=== PATIENT | male | born 2000 | race Caucasian/White ===

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

== ENCOUNTER 2021-03-03 22:17 | Emergency (ER) | payer OTHER ==
[~2021-03-03] VITALS: Ht 180.3 cm; Wt 104.3 kg
[~2021-03-03 22:17] MED LIST: IBUP-1955 PO
--- NOTE | 2021-03-03 22:33 | NUR ---
Patient walked into ER c/o lower back pain. Patient states he works for a [employer] and while at work today, he was painting the base of a wall and stood up and had unbearable pain on his lower back.
--- NOTE | 2021-03-03 22:34 | NUR ---
Dr. Grissom on bedside for MSE.
[2021-03-03] MEDS ORDERED: ONDANSETRON ODT 4 MG TAB.RAPDIS SL ONE (22:45)
[2021-03-03] MEDS ORDERED: CYCLOBENZAPRINE HCL 10 MG TABLET PO ONE (22:45)
[2021-03-03] MEDS ORDERED: HYDROCODONE/APAP 10-325 MG TABLET PO ONE (22:45)
[2021-03-03] MEDS ORDERED: ONDANSETRON ODT 4 MG TAB.RAPDIS ONE (22:53)
[2021-03-03] MEDS ORDERED: CYCLOBENZAPRINE HCL 10 MG TABLET ONE (22:53)
[2021-03-03] MEDS ORDERED: HYDROCODONE/APAP 10-325 MG TABLET ONE (22:54)
[2021-03-03 23:29] LABS: *BILIRUBIN,URIN NEGATIVE (NEGATIVE); *BLOOD, URINE TRACE INTACT (NEGATIVE); *CLARITY,URINE CLEAR (CLEAR); *COLOR,URINE YELLOW (YELLOW); *KETONES,URINE NEGATIVE (NEGATIVE); *UROBILINOGEN,URINE 0.2 E.U./dl (NORMAL); LEUKOCYTE ESTERASE ,URINE NEGATIVE (NEGATIVE); NITRITE, URINE NEGATIVE (NEGATIVE); PH,URINE 5.5 (5.0-8.0); UGLUCOSE NEGATIVE (NEGATIVE)
--- NOTE | 2021-03-03 23:33 | NUR ---
Dr. Grissom on bedside.
[2021-03-03] MEDS ORDERED: HYDR-4209 PO (23:39)
[2021-03-03] MEDS ORDERED: CYCL10TA9 PO (23:39)
[2021-03-03 23:44] LABS: BACTERIA,URINE NONE SEEN /HPF (NONE SEEN); RBC,URINE 0-3 /HPF (0-3); WBC,URINE 0-3 /HPF (0-3)
--- NOTE | 2021-03-03 23:53 | NUR ---
Patient discharged to home in stable condition. Written and verbal after care instructions given. Patient verbalizes understanding of instructions. Stressed follow up or return to ER for worsening s/s. Patient ambulated fr the ER with steady gait. All belongings with patient.
[2021-03-03 23:54] VITALS: BP 150/90
== END 2021-03-03 23:51 | disposition home or self-care (01) ==
LOC: ER 22:17
DX: M54.50 Low back pain, unspecified (principal); R03.0 Elevated blood-pressure reading, without diagnosis of hypertension
CPT/HCPCS: A4663; Q0162